=== PATIENT | male | born 1985 | race Caucasian/White ===

== ENCOUNTER → 2016-08-28 | Outpatient (REF) | payer OTHER ==
[2016-08-28 11:02] LABS: #IMMOTILE SPERM COUNTED 5; #MOTILE SPERM COUNTED 1; % MOTILITY 17 (> 25%); TOTAL # SPERM COUNTED 6 M/ml
== END ==
LOC: M LAB REF 10:31
PROVIDERS: ATTEND Obstetrics & Gynecology
DX: N46.9 Male infertility, unspecified (principal)

== ENCOUNTER → 2017-01-06 | Outpatient (REF) | payer OTHER ==
[2017-01-06 11:56] LABS: ESTRADIOL 42.8 PG/ML (<39.8); FOLLICLE STIMULATING HORMONE 2.5 mIU/mL (1.4-18.1); LUTEINIZING HORMONE 4.2 mIU/mL (1.5-9.3); PROLACTIN 13.4 NG/ML (2.1-17.7)
== END ==
LOC: M LABSMT 07:59
PROVIDERS: ATTEND Nurse Practitioner Women's Health
DX: N46.9 Male infertility, unspecified (principal); N46.11 Organic oligospermia

== ENCOUNTER → 2017-01-06 | Outpatient (CLI) | payer OTHER ==
--- NOTE | 2017-01-07 08:39 | REP ---
Clinical: Infertility. Oligospermia. Technique: Real time galicia scale and color Doppler evaluation using linear high frequency transducer. Findings: The right testicle demonstrates simple 2.8 mm and 3.6 mm intratesticular cysts and ductal ectasia of the rete testis. A small right hydrocele is noted. No significant right-sided varicoceles are identified. Right epididymis is normal. Vascularity to the right testicle and epididymis are normal. Right testicle measures 4.8 x 2.6 x 2.9 cm. The left testicle is normal in appearance and vascularity with 2.2 mm and 1.6 mm epididymal head cysts noted as well as small hydrocele. Few left-sided varicoceles measure up to 3.7 mm diameter. Left testicle measures 4.4 x 2.2 x 3.6 cm. Impression: 1. 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 Left testicle appears normal. 2. Few left-sided varicoceles up to 3.7 mm diameter. Signed by Jim Estevez MD 01/07/2017 08:31 A
== END ==
LOC: M SMT 10:49
PROVIDERS: ATTEND Nurse Practitioner Women's Health
DX: N46.9 Male infertility, unspecified (principal); N46.11 Organic oligospermia

== ENCOUNTER → 2017-01-13 | Outpatient (REF) | payer OTHER ==
[2017-01-13 14:14] LABS: #IMMOTILE SPERM COUNTED 5; #MOTILE SPERM COUNTED 1; % MOTILITY 17 (> 40%); SPERM ABNORMAL FORMS WBC'S NOTED; TOTAL # SPERM COUNTED 6 M/ml
== END ==
LOC: M SMT 13:57
PROVIDERS: ATTEND Nurse Practitioner Women's Health
DX: N46.9 Male infertility, unspecified (principal); N46.11 Organic oligospermia